=== PATIENT | male | born 1940 | race Hispanic/Latino ===

== ENCOUNTER → 2021-07-27 | Outpatient (CLI) | payer OTHER, MEDICARE ==
[~2021-07-27] MED LIST: ASPI-556 PO; CARV3.12 PO; CLOP75TA32 PO; ROSU20TA23 PO
== END | disposition home or self-care (01) ==
LOC: RAH 09:33
PROVIDERS: ATTEND Internal Medicine
DX: I10 Essential (primary) hypertension (principal); E66.9 Obesity, unspecified; E78.5 Hyperlipidemia, unspecified; R55 Syncope and collapse
CPT/HCPCS: 93306; 93356